=== PATIENT | female | born 1970 | race Caucasian/White ===

== ENCOUNTER 2017-05-01 08:02 | Emergency (ER) | payer OTHER ==
[~2017-05-01] VITALS: Ht 167.6 cm; Wt 192.0 kg
[~2017-05-01 08:02] MED LIST: CYCL-36 PO; DICL75 PO; OMEP20CA5 PO; ZOFR4TAB3 SL
[2017-05-01 08:15] VITALS: BP 122/56; PULSE 76; RESP 16; TEMP 98; O2SAT 99
[2017-05-01] MEDS ORDERED: CLIN150C14 PO (10:26)
[2017-05-01] MEDS ORDERED: PRED-503 PO (10:26)
[2017-05-01] MEDS ORDERED: POLY10O EACH EYE (10:26)
--- NOTE | 2017-05-01 10:27 | PD ---
HPI Chief Complaint: Eye Problems/Injury Time Seen by Provider: 10:09 Travel History International Travel<30 days: No Contact w/Intl Traveler<30days: No Traveled to known affect area: No History of Present Illness HPI 46-year-old female with advanced to the emergency Department with complaint of redness and swelling around bilateral eyes 4 days. She is allergic to animal dander and this has happened in the past after petting her dog's and then touching her eyes. She thinks she had done that but her symptoms have never lasted this long. She reports itchiness and tightness around her eyes. Has tried taking oral Benadryl with no relief of symptoms. Symptoms started in the right eye and then to the left. Reports minimal amount of drainage. Denies change in vision, blurry vision. Denies fever, vomiting. Denies exposures to new detergents, lotions, soaps, environmental exposures, foods, medications. Denies airway edema, tongue edema, wheezing, shortness of breath. No known aggravating or relieving factors. Symptoms are mild in severity. Allergies to shellfish. Has no other medical complaints. No other modifying factors or associated signs and symptoms. PFSH Past Medical History Cancer: No GERD: Yes Glaucoma: No Hepatitis: No Hiatal Hernia: No Hypertension: No Thyroid Disease: No Tetanus Vaccination: > 5 Years Influenza Vaccination: No ?: Not : 3 Para: 3 Past Surgical History Section: Yes Gynecologic Surgery: Yes () Hysterectomy: Yes Other Surgery: Yes Social History Alcohol Use: Yes (occ) Tobacco Use: No Substance Use: No Allergies-Medications (Allergen,Severity, Reaction): Coded Allergies: shellfish derived (Unverified Allergy, Severe, HIVES, 05/01/17) Reported Meds & Prescriptions Reported Meds & Active Scripts Active Deltasone (Prednisone) 20 Mg Tab 40 Mg PO DAILY 5 Days Polytrim Opth Drops (Polymyxin/Trimethoprim Sulfate) 10,000-0.1 Unit/Ml-% Soln 2 Drop EACH EYE Q6HR 7 Days Clindamycin (Clindamycin HCl) 150 Mg Cap 300 Mg PO Q6H 10 Days Review of Systems Except as stated in HPI: all other systems reviewed are Neg Physical Exam Narrative GENERAL: Well-nourished, well-developed female patient, in no acute distress; afebrile, nontoxic-appearing SKIN: Warm and dry. Bilateral upper and lower eyelids eyes are erythematous and edematous; crusted drainage noted to left eye eyelashes; eyes without scleral erythema. No orbital tenderness on palpation. HEAD: Atraumatic. Normocephalic. EYES: Pupils equal and round and equal at 3 mm with chronic reaction. PERRLA. EOMI. No scleral icterus. No injection or drainage. ENT: Mucosa pink and moist. Airway patent. NECK: Trachea midline. CARDIOVASCULAR: Regular rate and rhythm. No murmur appreciated. RESPIRATORY: No accessory muscle use. Clear to auscultation. Breath sounds equal bilaterally. GASTROINTESTINAL: Abdomen soft, non-tender, nondistended. Hepatic and splenic margins not palpable. Bowel sounds are active 4 quadrants. MUSCULOSKELETAL: No obvious deformities. No clubbing. No cyanosis. No edema. NEUROLOGICAL: Awake and alert. Oriented 3. No obvious cranial nerve deficits. Motor grossly within normal limits. Normal speech. PSYCHIATRIC: Appropriate mood and affect; insight and judgment normal. Data Data Last Documented VS Vital Signs Date Time Temp Pulse Resp B/P (MAP) Pulse Ox O2 Delivery O2 Flow Rate FiO2 05/01/17 08:15 98.0 76 16 122/56 (78) 99 Orders Orders Ed Discharge Order (05/01/17 10:28) MDM Medical Decision Making Medical Screen Exam Complete: Yes Emergency Medical Condition: Yes Medical Record Reviewed: Yes Differential Diagnosis Allergic reaction, preseptal cellulitis, conjunctivitis, blepharitis Narrative Course 46-year-old female with suspected preseptal cellulitis and possible allergic reaction. She is afebrile and nontoxic-appearing. She denies fever, vomiting. Visual acuity is unremarkable. I will treat the patient for possible preseptal cellulitis and an allergic reaction. Clindamycin, Polytrim eyedrops, Deltasone prescribed for home. Instructed patient to take Benadryl as directed and as needed for rash and itching. Instructed patient to follow up with primary care provider. Patient verbalizes understanding and agreement with treatment plan. Patient is medically cleared and stable for discharge. Discussed reasons to return to the emergency department. Patient agrees with treatment plan. The patients vital signs are stable and the patient is stable for outpatient follow-up and treatment. Patient discharged home, stable and in no acute distress. Diagnosis Primary Impression: Preseptal cellulitis Referrals: Primary Care Physician Patient Instructions: General Instructions, Periorbital Cellulitis in Adults ( ED) Departure Forms: Tests/Procedures, Work Release Enter return to work date: May 03, 2017 Additional Instructions: Use antibiotic eye drops and oral antibiotics as prescribed Apply warm or cool compresses to both eyes for a few minutes several times daily to minimize irritation Avoid triggers, such as allergens, that may irritate your eyes Wash your hands frequently Do not share washcloths, towels, pillows, or any other material that has touched your eyes with any other household members Benadryl as directed and as needed for rash/itching Follow-up with your primary care provider Follow-up with ophthalmology as needed Return to the emergency department immediately with worsening of symptoms Med/Other Pt SpecificInfo: Prescription(s) given Scripts Prednisone (Deltasone) 20 Mg Tab 40 MG PO DAILY for 5 Days, #10 TAB 0 Refills Prov: Katey Mclain 05/01/17 Polymyxin B-Trimethoprim Opth Drops (Polytrim Opth Drops) 10,000-0.1 Unit/Ml-% Soln 2 DROP EACH EYE Q6HR for Mgmt Bacterial Infection for 7 Days, #1 BOTTLE 0 Refills Prov: Katey Mclain 05/01/17 Clindamycin (Clindamycin) 150 Mg Cap 300 MG PO Q6H for Infection for 10 Days, #80 CAP 0 Refills Prov: Katey Mclain 05/01/17 Disposition: 01 DISCHARGE HOME Condition: Stable Katey Mclain May 01, 2017 10:27
== END 2017-05-01 10:50 | disposition home or self-care (01) ==
LOC: PHED 08:02
DX: L03.213 Periorbital cellulitis (principal); Z87.19 Personal history of other diseases of the digestive system
CPT/HCPCS: 99284